=== PATIENT | female | born 1965 | race Caucasian/White ===

== ENCOUNTER 2024-03-30 10:23 | Emergency (ER) | payer MEDICARE, MEDICAID, SELFPAY ==
[2024-03-30 10:30] VITALS: BP 174/89; PULSE 80; TEMP 36.7; O2SAT 97; BMI 31.5
--- NOTE | 2024-03-30 10:51 | XR_ITS ---
The [address] [address] Patient Name: SHAINA NAZARIO MRN: [id number] date: 1965 Sex: F Assigned Patient Location: ER Current Patient Location: ER Accession/Order Number: [id number] Exam Date: 03/30/2024 11:13 Report Date: 03/30/2024 11:26 At the request of: JOSHUA RENTEIRA Procedure: XR ankle RT min 3V PROCEDURE: XR ankle RT min 3V COMPARISON: None. HISTORY: trauma FINDINGS: BONES:No acute fracture or dislocation. Minimal degenerative changes. Moderate enthesopathic spurring plantar calcaneus. Corticated bone fragment inferior to lateral malleolus, remote injury SOFT TISSUES:Negative. No visible soft tissue swelling. EFFUSION:None visible. OTHER: Negative. XR/XR ankle RT min 3V IMPRESSION: No acute fracture Electronically authenticated by: FLORINDA FERNANDES Date: 03/30/2024 11:26
--- NOTE | 2024-03-30 10:51 | XR_ITS ---
The [address] [address] Patient Name: SHAINA NAZARIO MRN: [id number] date: 1965 Sex: F Assigned Patient Location: ER Current Patient Location: ER Accession/Order Number: [id number] Exam Date: 03/30/2024 11:13 Report Date: 03/30/2024 11:28 At the request of: JOSHUA RENTERIA Procedure: XR ribs LT min 3V w CXR1V EXAMINATION: XR ribs LT min 3V w CXR1V HISTORY: trauma COMPARISON: 10/20/2023 FINDINGS: LUNGS: No significant pulmonary parenchymal abnormalities. PLEURA: No pneumothorax, effusion, or pleural thickening. MEDIASTINUM: No visible mass or adenopathy. CARDIAC: No cardiomegaly or cardiac silhouette abnormality. RIBS: Subtle fracture left posterior ninth rib seen on image 5 OTHER: Negative. XR/XR ribs LT min 3V w CXR1V IMPRESSION: Minimally displaced fractures left posterior ninth rib No acute cardiopulmonary process Electronically authenticated by: FLORINDA FERNANDES Date: 03/30/2024 11:28
[2024-03-30] MEDS: KETOROLAC TROMETHAMINE 30 MG/ML VIAL IM (11:08)
--- NOTE | 2024-03-30 11:38 | ED_ITS ---
HPI HPI - Fall General Chief Complaint: Fall Stated Complaint: RIB PAIN/FALL Time Seen by Provider: 03/30/24 10:39 Source: patient Mode of arrival: walk-in Limitations: no limitations History of Present Illness HPI Narrative: The patient is coming to the ER after she had a fall on the pavement, she was just walking when she tripped and twisted her right ankle fell on her left anterior chest wall and her left knee, there was no head injury there was no loss of consciousness The patient is complaining of right ankle pain and she mentioned that her left knee usually hurts because of chronic osteoarthritis but right now there is nothing hurting more than usual although she does have an abrasion on top of it, the patient also have a left anterior lower chest wall pain Related Data Previous Rx's ?Medication ?Instructions ?Recorded oxycodone-acetaminophen 5 mg-325 1 tab PO Q8H PRN pain 3 days #9 03/30/24 mg tablet (Percocet) tabs Allergies Allergy/AdvReac Type Severity Reaction Status Date / Time fluoxetine [From Prozac] AdvReac Mild Agitated Verified 03/30/24 10:30 hydrocodone [From Vicodin] AdvReac Mild itching Verified 03/30/24 10:30 Opioid HPI Opioid Management Most Recent Pain and Opioid Data: Last Pain Scale 7 03/30/24 11:08 Last MAR Pain Assessment 03/30/24 11:08 Review of Systems ROS Status of ROS 10 or more systems reviewed and unremark able except as noted in history and below Exam Narrative Exam Narrative: Nurses notes and vital signs reviewed and patient is not hypoxic. General: Well-appearing and in no apparent distress. Skin: Warm, dry, no pallor noted. No rash. Head: Normocephalic, atraumatic. Neck: Supple, non-tender. Eye: Pupils are equal, round and EOMI. No scleral icterus. Ears, Nose, Mouth, and Throat: TM are clear, no nasal mucosal hypertrophy. Oral mucosa is moist, no posterior oropharynx erythema, uvula is mid-line Cardiovascular: Regular Rate and Rhythm without murmur, gallop or rub. Respiratory: No accessory muscle use or respiratory distress. Lungs are clear to auscultation, no wheezing, rales or rhonchi Chest Wall: Tenderness upon palpation of the anterior left-sided chest wall mostly in the lower half there is no ecchymosis Back: No midline thoracic or lumbar vertebral tenderness. No CVA tenderness Musculoskeletal: normal ROM, no calf or popliteal tenderness, there is tenderness upon palpation of the lateral malleolus on the right ankle and there is mild edema as well there is no open wounds and no vascular injury detected GI: Abdomen is soft, non-distended. Normal bowel sounds. No masses appreciated. No tenderness to palpation. No rebound, guarding, or rigidity noted. Neurological: A&O x4. No cranial nerve dysfunction observed. No truncal ataxia. Moves all extremities. Sensation intact. Psychiatric: Cooperative and interactive. Normal mood and affect. Constitutional Vital Signs, click to edit/add: Last Vital Signs Temp 98.0 F 03/30/24 10:30 Pulse 80 03/30/24 10:30 Resp 18 03/30/24 10:30 BP 174/89 H 03/30/24 10:30 Pulse Ox 97 03/30/24 10:30 O2 Del Method Room Air 03/30/24 10:30 Course Vital Signs Vital signs: Vital Signs Temperature 98.0 F 03/30/24 10:30 Pulse Rate 80 03/30/24 10:30 Respiratory Rate 18 03/30/24 10:30 Blood Pressure 174/89 H 03/30/24 10:30 Pulse Oximetry 97 03/30/24 10:30 Oxygen Delivery Method Room Air 03/30/24 10:30 Temperature 98.0 F 03/30/24 10:30 Pulse Rate 80 03/30/24 10:30 Respiratory Rate 18 03/30/24 10:30 Blood Pressure 174/89 H 03/30/24 10:30 Pulse Oximetry 97 03/30/24 10:30 Oxygen Delivery Method Room Air 03/30/24 10:30 MDM - Fall MDM Narrative Medical decision making narrative: Right now the patient right ankle x-ray showed no acute pathology X-ray of the left sided chest wall showing minimally displaced ninth rib fracture posteriorly The patient provided Toradol with not enough to control her pain she was provided with Percocet for the next 3 days I did review her opiate intake and the last time she was prescribed any opiate was in February for 3 days only Right now the patient also provided with a incentive spirometer And Aircast for the right ankle The patient is to follow up with primary care physician in next 2-3 days or to return to the emergency department should any of the signs or symptoms worsen or new symptoms develop. The patient agrees with the following Diagnosis and Treatment plan and the patient will be discharged home. Discharge Plan Discharge Stand Alone Forms: Portal Instructions Chief Complaint: Fall Clinical Impression: Fracture of rib Qualifiers: Encounter type: initial encounter Rib fracture type: single rib Fracture type: closed Laterality: left Qualified Code(s): S22.32XA - Fracture of one rib, left side, initial encounter for closed fracture Acute ankle pain Qualifiers: Laterality: left Qualified Code(s): M25.572 - Pain in left ankle and joints of left foot Patient Disposition: Home, Self-Care Time of Disposition Decision: 11:53 Condition: Good Prescriptions / Home Meds: New oxycodone-acetaminophen [Percocet] 5-325 mg tablet 1 tab PO Q8H PRN (Reason: pain) 3 Days Qty: 9 0RF Print Language: Belarusian Instructions: Ankle Sprain (ED), Rib Fracture (ED) Referrals: ARTUR PATIÑO [Primary Care Provider] - 1 week
[2024-03-30 12:25] VITALS: BP 168/85; PULSE 90; O2SAT 100
== END 2024-03-30 12:26 | disposition home or self-care (01) ==
PROVIDERS: Emergency Provider Emergency Medicine; PCP Family Medicine
DX: M25.572 Pain in left ankle and joints of left foot (principal); S22.32XA Fracture of one rib, left side, initial encounter for closed fracture; W01.10XA Fall on same level from slipping, tripping and stumbling with subsequent striking against unspecified object, initial encounter
CPT/HCPCS: 71101; 73610; 94667; 96372; 99284; J1885

== ENCOUNTER 2024-06-07 20:19 | Outpatient (REF) | payer MEDICARE, MEDICAID, SELFPAY | END 2024-06-07 20:20 | disposition home or self-care (01) | LOC: LAB 20:19 | PROVIDERS: PCP Family Medicine; Visit Provider Physician Assistant | DX: Z01.419 Encounter for gynecological examination (general) (routine) without abnormal findings (principal) | CPT/HCPCS: 87624; 88175 ==

== ENCOUNTER 2025-01-19 10:08 | Outpatient (OUT) | payer MEDICARE, MEDICAID, SELFPAY ==
[2025-01-19 10:50] LABS: Alanine Aminotransferase 24 U/L (14-59); Albumin Level 3.4 g/dL (3.4-5.0); Alkaline Phosphatase 133 U/L (46-116); Anion Gap 8.9; Aspartate Amino Transferase 20 U/L (15-37); BUN Creatinine Ratio 13.1; Bilirubin Total 0.3 mg/dL (0.2-1.0); Calcium 9.1 mg/dL (8.5-10.1); Chloride 106 mmol/L (98-107); Estimated GFR (African America >60 (>=60 mL/min/1.73m^2); Estimated GFR (Non-African Ame >60 (>=60 mL/min/1.73m^2); Globulin 3.4 g/dL; Glucose 87 mg/dL (74-106); Potassium 3.9 mmol/L (3.5-5.1); Sodium 142 mmol/L (136-145); Total Protein 6.8 g/dL (6.4-8.2)
== END 2025-01-19 10:09 | disposition home or self-care (01) ==
LOC: LAB 10:12
PROVIDERS: PCP Family Medicine; Visit Provider Physician Assistant
DX: Z79.899 Other long term (current) drug therapy (principal)
CPT/HCPCS: 36415; 80053